=== PATIENT | female | born 1975 | race Caucasian/White ===

== ENCOUNTER 2017-09-13 11:16 | Day surgery (SDC) | payer BC ==
--- NOTE | 2017-09-13 05:23 | History and Physical Report ---
DATE: 09/12/2017. CHIEF COMPLAINT AND HISTORY OF CHIEF COMPLAINT: This patient presents with a history of an intractable lumbar radiculopathy. Due to the failure of all therapy, she presents today for an implanted spinal catheter infusion trial with hydromorphone to determine if the implantation of a permanent system can be of any value in pain control. PAST MEDICAL HISTORY: Asthmatic bronchitis, sleep apnea. PAST SURGICAL HISTORY: Abdominal surgery, gallbladder surgery. MEDICATIONS ON ADMISSION: To be provided. ALLERGIES: Penicillin, morphine, Bactrim, Latex. SOCIAL HISTORY: Smoking, social alcohol, caffeine. FAMILY HISTORY: Hypertension, cancer, asthma. REVIEW OF SYSTEMS: The patient seems appropriate and in no acute distress. The remainder of the systems review shows chronic head and neck pain, headaches , sleep disturbance, peripheral edema, irritable bowel syndrome, degenerative arthritis, Crohn's disease. PHYSICAL EXAMINATION: General: Height and weight are unavailable. Vital Signs: Unavailable. HEENT: Within normal limits. Lungs: Clear. Heart: Regular rate and rhythm. Abdomen: Nontender. Musculoskeletal: Examination of the musculoskeletal system shows diffuse tenderness throughout the lumbar spine. Range of motion produces pain moving into both legs. Sensory field evaluation shows a generalized sensory reduction across both front and back surfaces of both legs. Her motor functionality appears to be intact, although she indicates an assistive device is used because of weakness in her legs. Ambulation: Assistive device utilized. Neurologic: Cranial nerves are intact. IMPRESSION: LUMBAR RADICULOPATHY, ICD-10 CODE M54.16 AND M54.17. PLAN: The patient is here for an implanted spinal catheter infusion trial with hydromorphone to determine if the implantation of a permanent system can be of any value in pain control. The implanted catheter technique will be utilized to help minimize the number of needle penetrations into the spinal space required to get to the permanent system. The implanted catheter will also stabilize the catheter and reduce the incidence of spinal headaches. With this in combination with an epidural blood patch, ideally we will keep the incidence at a low percent. The implanted catheter trial with hydromorphone will run 14 days. During this period of time, three increases will be scheduled if necessary. At the end of the two-week period of time, we will implant the pump or remove the implanted catheter. The potential risks, side effects, and complications have been carefully reviewed and discussed including spinal cord injury, nerve root injury, spinal headache, and failure of therapy. She was fully informed about the risks, side effects, and complications. She was given a booklet with CD Rom from the hand filer balance wheel, [employer], which addresses the same. She was put in contact with a sales representative gas service who will also discuss the issues and the potential complications. She understands and has consented. An overnight stay will be evaluated. JOB NUMBER: [id number] cc: Quentin Singleton
[~2017-09-13 11:16] MED LIST: ACETAMINOPHEN 1,000 MG/100 ML BTL IV ONE; CLINDAMYCIN 600MG/50ML PREMIX 600 MG/50 ML BAG IVPB ONE; FAMOTIDINE 20MG TABLET PO ONE; HYDROMORPHONE PF 2MG/ML AMP 0.008 MG in 0.9 % SODIUM CHLORIDE 10ML VIA 0.996 ML IV ONE; HYDROMORPHONE PF 2MG/ML AMP 4 MG in 0.9 % SODIUM CHLORIDE 500ML 498 ML IV ONE; MECLIZINE 25 MG TABLET PO ONE; METOCLOPRAMIDE 10 MG TABLET PO ONE
[2017-09-13] MEDS ORDERED: LIDOCAINE 1% W/EPI 1:200,000 MPF 30ML SQ ONE (11:17)
[2017-09-13] MEDS ORDERED: MIDAZOLAM HCL 2MG/2ML VIAL IV ONE (11:17)
[2017-09-13] MEDS ORDERED: LIDOCAINE 2% MDV (20MG/ML) 20ML VIAL IV ONE (11:17)
[2017-09-13] MEDS ORDERED: FENTANYL PF 100MCG/2ML VIAL IV ONE (11:17)
[2017-09-13] MEDS ORDERED: HYDROMORPHONE HCL 2 MG/ML VIAL IV ONE (11:17)
[2017-09-13] MEDS ORDERED: *PACU ONLY* KETAMINE HCL 10 MG/ML (20ML) VIAL IV ONE (11:17)
[2017-09-13] MEDS ORDERED: BUPIVACAINE 0.5% W/EPI MPF 30 ML VIAL IVP ONE (11:17)
[2017-09-13] MEDS ORDERED: PROPOFOL 10 MG/ML VIAL IV ONE (11:17)
[2017-09-13] MEDS ORDERED: SENNOSIDES/DOCUSATE SODIUM UD CAPSULE PO PRN ×2 (14:06)
[2017-09-13] MEDS ORDERED: HYDROMORPHONE HCL 2 MG/ML VIAL IM PRN ×2 (14:06)
[2017-09-13] MEDS ORDERED: OXYCODONE/APAP 10MG-325MG TABLET PO PRN (14:06)
[2017-09-13] MEDS ORDERED: METOCLOPRAMIDE HCL 10 MG/2 ML VIAL IVP PRN (14:06)
[2017-09-13] MEDS ORDERED: AL HYDROX/MAG HYDROX 30ML UD PO PRN (14:06)
[2017-09-13] MEDS ORDERED: RINGERS SOLUTION,LACTATED 1,000 ML IV SCH (14:06)
[2017-09-13] MEDS ORDERED: DIPHENHYDRAMINE HCL 25 MG CAPSULE PO PRN ×2 (14:06)
[2017-09-13] MEDS ORDERED: DIPHENHYDRAMINE HCL IV 50 MG/ML VIAL IVP PRN (14:06)
[2017-09-13] MEDS ORDERED: NALOXONE 0.4 MG/1 ML VIAL IVP PRN (14:06)
[2017-09-13] MEDS ORDERED: TEMAZEPAM 15 MG CAPSULE PO PRN ×2 (14:06)
[2017-09-13] MEDS ORDERED: ACETAMINOPHEN 325 MG TAB PO PRN ×2 (14:06)
[2017-09-13] MEDS ORDERED: METOCLOPRAMIDE 10 MG TABLET PO PRN (14:06)
[2017-09-13] MEDS ORDERED: HYDROCODONE/APAP 7.5/325MG TABLET PO PRN ×2 (14:06)
[2017-09-13] MEDS: OXYCODONE/APAP 10MG-325MG TABLET PO PRN (14:58)
[2017-09-13] MEDS: DIPHENHYDRAMINE HCL IV 50 MG/ML VIAL IVP PRN (19:43)
[2017-09-13] MEDS: CLINDAMYCIN 600MG/50ML PREMIX 600 MG/50 ML BAG IVPB SCH (19:44)
--- NOTE | 2017-09-13 20:38 | Operative Note - [place] ---
DATE OF SURGERY: 09/13/17 PREOPERATIVE DIAGNOSIS: INTRACTABLE LUMBAR RADICULOPATHY, ICD-10 CODE = M54.16 AND M54.17. SURGERY: 1. FLUOROSCOPIC-GUIDED ACCESS SPINAL SPACE AT L3-4. PLACEMENT OF THIN-WALLED SPINAL CATHETER T12. 2. DIAGNOSTIC MYELOGRAPHY WITH RADIOLOGIC SUPERVISION AND INTERPRETATION. 3. SPINAL OPIOID BOLUS HYDROMORPHONE 0.002 MG SPINAL SPACE. 4. INCISION, SUBCUTANEOUS DISSECTION, AND ANCHORING OF SPINAL CATHETER TO DEEP SUPRASPINOUS FASCIA WITH AN ANCHORING DEVICE AND NONABSORBABLE SUTURE. 5. INCISION, SUBCUTANEOUS DISSECTION, AND FORMATION OF SMALL SUBCUTANEOUS POUCH AT LEFT FLANK, ULTIMATELY A SITE FOR PUMP. 6. TUNNELING MIDLINE SPINAL CATHETER INTO FLANK POUCH, INTERFACE SPINAL CATHETER WITH SECOND CATHETER COMPONENT BY WAY OF CONNECTOR TUNNELING SECONDARY CATHETER COMPONENT 6 CM SUPERIOR TO POUCH EXITING THE SKIN. 7. INTERFACE EXTERNAL CATHETER TO EXTERNAL PUMP SET TO DELIVER HYDROMORPHONE AT 0.08 MG PER DAY. 8. CLOSURE OF MIDLINE INCISION WITH VICRYL FOR FASCIAL AND RUNNING SUBCUTICULAR VICRYL FOR SKIN, DERMABOND CLOSURE, CLOSURE OF LEFT FLANK POUCH WITH RUNNING NYLON, DRESSINGS PLACED. 9. EPIDURAL BLOOD PATCH AT L4-5, 20 ML AUTOLOGOUS BLOOD DRAWN, STERILE TECHNIQUE, LEFT ANTECUBITAL. SURGEON: LISA CRUZ D.O. ANESTHESIA: LOCAL SEDATION. ANESTHESIA PROVIDER: JOSE MIGUEL VELOZ CRNA INDICATIONS: This patient presents with a history of an intractable lumbar radiculopathy. Due to the failure of all therapy, she is here for a spinal opioid infusion trial with an implanted catheter to determine if an implanted device would be of any value in pain control. SURGERY: Intravenous line, vital sign monitoring, IV sedation, prepped and draped in sterile technique, under imaging, patient positioned prone. The spinal interspace at L3-4 was marked, skin infiltrated. A #20 gauge spinal needle paramedian approach beveled with the long axis inserted into the spinal space. This was accomplished using AP and lateral imaging, advancing the needle slowly on lateral imaging. With CSF flow, a thin-walled spinal catheter was advanced, positioned at T12. There were no fasciculations. No indication of nerve root irritation. With the catheter at T12, diagnostic myelography was performed. The resulting flow characteristics were smooth and linear in the space. There were appropriate flow characteristics identified identified in the spinal space. A thin-walled spinal catheter was positioned at T12 at the midline. The needles were removed. An incision was made above and below the needle site and subcutaneous dissection was conducted to the supraspinous fascia. The catheter was then anchored to the supraspinous fascia with nonabsorbable suture and anchoring device. CSF was still noted coming through the catheter. The catheter was clamped to stop CSF leak. A bolus of Hydromorphone of 0.002 mg was given through the catheter into the spinal space at T12. At the left flank, which was the site ultimately picked by the patient for the pump if successful with the trial, skin infiltrated, incision made, and subcutaneous dissection was conducted to form a small pouch of suitable depth. A tunneling tool was used to carry the spinal catheter from midline into the flank pouch and then the spinal catheter was interfaced and resected with a second catheter component by way of a connector. This second catheter component was tunneled superior above this exiting the skin. The external catheter was interfaced with an external pump, which was set to deliver Hydromorphone at 0.08 mg a day. The midline incision was closed with Vicryl for fascia and a running subcuticular Vicryl for skin. The left flank pouch was closed with a running nylon. At L4-5, which was one level over the dural puncture, skin infiltrated, an #17 gauge, six-inch epidural needle with [id number] under imaging placed into the epidural space. No CSF noted. Simultaneously, 20 mL of autologous blood drawn sterile technique from the left antecubital. This blood, maintaining sterility, was placed onto the field. An epidural blood patch was then performed with this blood at this level. Needle removed. Dressings were placed securing the catheter and all connections under sterile dressing. With the pump set to run and all the dressings placed, she was transported to the Recovery Room stable showing no side-effects from the procedure or the sedation. She had full functionality of all extremities. There was no unusual pain and no side-effects. She will be kept flat for four hours and slowly elevated for one, but will be kept overnight for observation. IN THE MORNING DISCHARGE INSTRUCTIONS : 1. The sites to remain clean and dry. No showering or bathing in any way that would disrupt dressings. 2. Standard medications resumed limiting oral analgesics if tolerated. 3. Spinal opioid side-effects of respiratory depression, nausea, vomiting, constipation, urinary retention, lightheadedness or rash have all been discussed and reviewed. She will be contacted by the office in two days to set up an appointment to come in in three days for her first increase. Any side- effects should be reported to the office. If unsuccessful, she should go to the local Emergency Room and have the office contacted. All other instructions provided. Numbers to contact if problems given. She will be evaluated. cc: Dr. Pineda Lopez JOB NUMBER: [id number] MTDD
[2017-09-13] MEDS ORDERED: TOPIRAMATE 25MG TABLET PO SCH (22:00)
[2017-09-13] MEDS ORDERED: DOXEPIN HCL 25 MG CAPSULE PO SCH (22:00)
[2017-09-14] MEDS: CLINDAMYCIN 600MG/50ML PREMIX 600 MG/50 ML BAG IVPB SCH ×2 (03:04→12:11)
[2017-09-14] MEDS: DIPHENHYDRAMINE HCL IV 50 MG/ML VIAL IVP PRN (03:10)
[2017-09-14] MEDS: OXYCODONE/APAP 10MG-325MG TABLET PO PRN (06:16)
--- NOTE | 2017-09-14 22:20 | RADIOLOGY REPORT ---
EXAM: SPINE, 1 VIEW HISTORY: POST PAIN CATHETER IMPLANT. TECHNIQUE: Single AP view of the spine obtained from approximately the T3 level down to the L3 level. COMPARISON: Thoracic spine series 03/18/16. FINDINGS: The previously seen segmented metallic wires overlying the spine are no longer evident. There is a tiny metallic dot-like density overlying the right side of the T12 vertebra, which may be the superior extent of a catheter. There is questionably a second catheter extending much further superiorly into the thoracic level with no associated tiny dot seen. This could also just be an artifact along the left side of the spine and correlation with the procedure itself is suggested. There is a mild mid thoracic curve to the left partially seen, also present previously. Linear metallic density overlying the left mid abdomen approximately 1.9 cm in length may be associated with the catheter and clinical correlation is suggested. IMPRESSION: 1. TINY METALLIC DOT-LIKE DENSITY OVERLYING THE T12 VERTEBRA MAY BE THE SUPERIOR EXTENT OF A SPINAL CATHETER AND CORRELATION WITH THE PROCEDURE IS SUGGESTED. 2. THERE IS ALSO A FAINT VERTICAL CATHETER-LIKE DENSITY EXTENDING MUCH FURTHER SUPERIORLY IN THE THORACIC REGION, WHICH MAY JUST BE AN OVERLYING ARTIFACT. 3. A 1.9 CM IN LENGTH LINEAR METALLIC DENSITY LEFT SIDE OF THE ABDOMEN, DESCRIBED ABOVE. JOB NUMBER: [id number] MTDD
== END 2017-09-14 12:32 | disposition home or self-care (01) ==
LOC: SUR 11:16 → MEDSURG 13:54 → SUR 09-14 12:32
PROVIDERS: ATTEND Pain Medicine Interventional Pain Medicine
DX: M54.16 Radiculopathy, lumbar region (principal); M54.17 Radiculopathy, lumbosacral region; K50.90 Crohn's disease, unspecified, without complications
CPT/HCPCS: 72020; 84703; J1170; J1200; J7040; J7120

== ENCOUNTER 2017-09-27 12:49 | Day surgery (SDC) | payer BC ==
--- NOTE | 2017-09-27 07:17 | History and Physical Report ---
DATE: 09/27/2017. CHIEF COMPLAINT AND HISTORY OF CHIEF COMPLAINT: This patient presents with a history of intractable lumbar radiculopathy. She has an implanted spinal catheter infusion trial with hydromorphone ongoing. She has achieved 75 to 85 percent pain control. Due to the failure of other therapies and the success of the trial, she is here for full implantation. PAST MEDICAL HISTORY: Asthmatic bronchitis, sleep apnea. PAST SURGICAL HISTORY: Abdominal surgery, gallbladder surgery. MEDICATIONS ON ADMISSION: To be provided. ALLERGIES: Penicillin, morphine, Bactrim, Latex. SOCIAL HISTORY: Smoking, social alcohol, caffeine. FAMILY HISTORY: Hypertension, cancer, asthma. REVIEW OF SYSTEMS: The patient seems appropriate and in no acute distress. The remainder of the systems review shows head and neck pain, headaches, sleep disturbance, peripheral edema, irritable bowel syndrome, degenerative arthritis , Crohn's disease. PHYSICAL EXAMINATION: General: Height and weight are unknown. Weight: Unknown. Vital Signs: Not available. HEENT: Within normal limits. Lungs: Clear. Heart: Regular rate and rhythm. Abdomen: Nontender. Musculoskeletal: Examination of the musculoskeletal system shows diffuse tenderness throughout the lumbar spine. Range of motion does produce pain throughout the low back and hip area. Lower extremity functionality shows pain across both legs. There are no motor or sensory field abnormalities. The dressings for the internal spinal catheter infusion trial are in place. The external pump is identified and is intact. Neurologic: Cranial nerves are intact. IMPRESSION: 1. LUMBAR RADICULOPATHY, ICD-10 CODE M54.16 AND M54.17. 2. IMPLANTED SPINAL CATHETER INFUSION TRIAL WITH HYDROMORPHONE. PLAN: With the success of the trial, the patient is here for implantation of a permanent system. We will consider the procedure outpatient, although an overnight stay will be evaluated. JOB NUMBER: [id number] cc: Quentin Singleton
[~2017-09-27 12:49] MED LIST changes: +HYDROMORPHONE HCL 0.04 GM in 0.9 % SODIUM CHLORIDE 10ML VIA 40 ML IV ONE; +HYDROMORPHONE PF 2MG/ML AMP 0.004 MG in 0.9 % SODIUM CHLORIDE 10ML VIA 0.998 ML IV ONE; -HYDROMORPHONE PF 2MG/ML AMP 0.008 MG in 0.9 % SODIUM CHLORIDE 10ML VIA 0.996 ML IV ONE; -HYDROMORPHONE PF 2MG/ML AMP 4 MG in 0.9 % SODIUM CHLORIDE 500ML 498 ML IV ONE
[2017-09-27] MEDS ORDERED: PROPOFOL 10 MG/ML VIAL IV ONE (12:50)
[2017-09-27] MEDS ORDERED: MIDAZOLAM HCL 2MG/2ML VIAL IV ONE (12:50)
[2017-09-27] MEDS ORDERED: BUPIVACAINE 0.5% W/EPI MPF 30 ML VIAL IVP ONE (12:50)
[2017-09-27] MEDS ORDERED: FENTANYL PF 100MCG/2ML VIAL IV ONE (12:50)
[2017-09-27] MEDS ORDERED: LIDOCAINE 1% W/EPI 1:200,000 MPF 30ML SQ ONE (12:50)
[2017-09-27] MEDS ORDERED: HYDROMORPHONE HCL 2 MG/ML VIAL IV ONE (12:50)
[2017-09-27] MEDS ORDERED: LIDOCAINE 2% MDV (20MG/ML) 20ML VIAL IV ONE (12:50)
[2017-09-27] MEDS ORDERED: CEFAZOLIN 1G VIAL IM ONE (12:50)
--- NOTE | 2017-09-28 07:35 | Operative Note ---
DATE OF SURGERY: 09/27/2017. PREOPERATIVE DIAGNOSIS: 1. INTRACTABLE LUMBAR RADICULOPATHY, ICD-10 CODE M54.16 AND M54.17. 2. IMPLANTED SPINAL CATHETER INFUSION TRIAL WITH HYDROMORPHONE. POSTOPERATIVE DIAGNOSIS: 1. INTRACTABLE LUMBAR RADICULOPATHY, ICD-10 CODE M54.16 AND M54.17. 2. IMPLANTED SPINAL CATHETER INFUSION TRIAL WITH HYDROMORPHONE. OPERATION: 1. FLUOROSCOPICALLY GUIDED INCISION, SUBCUTANEOUS DISSECTION, AND REMOVAL OF EXTERNAL CATHETER. 2. INCISION, SUBCUTANEOUS DISSECTION, AND CREATION OF SUBCUTANEOUS POUCH AT LEFT FLANK FOR PUMP IDENTIFIED MEDTRONIC 40 ML PROGRAMMABLE. 3. INCISION, RESECTION, AND REVISION OF INDWELLING SPINAL CATHETER INTERFACED WITH SECOND CATHETER COMPONENT BY WAY OF CONNECTOR. 4. INTERFACE REVISED CATHETER TO THE PUMP PLACED ONTO THE FIELD, 40 ML PROGRAMMABLE, FILLED WITH HYDROMORPHONE 1.0 MG PER ML. 5. PLACEMENT OF PUMP WITH INTERFACE TO CATHETER INTO POUCH, SECURING TO POSTERIOR FASCIA WITH NONABSORBABLE SUTURE USING PUMP EYELETS AT THREE POINTS. 6. PLACEMENT OF CURVED 24-GAUGE OSUNA NEEDLE TO ACCESS PORT FOR PROGRAMMABLE PUMP WITH ASPIRATION OF 1.0 ML OF CATHETER CONTENTS, CLEARING THE CATHETER OF OPIOID AND CEREBROSPINAL FLUID MIXTURE. 7. DIAGNOSTIC MYELOGRAPHY WITH RADIOLOGIC SUPERVISION AND INTERPRETATION THROUGH ACCESS PORT. 8. CLOSURE OF INCISION WITH VICRYL FOR THE FASCIA AND RUNNING SUBCUTICULAR VICRYL FOR THE SKIN. DERMABOND CLOSURE. 9. PROGRAMMING OF PUMP TO DELIVER BY CONTINUOUS INFUSION HYDROMORPHONE AT 0.2 MG PER DAY. SURGEON: Marcial Rizo D.O. ANESTHESIA: Local sedation. ANESTHESIA PROVIDER: Ortega Hooper CRNA. INDICATION: This patient presents with a history of an intractable lumbar radiculopathy. Due to the failure of therapy an implanted spinal catheter infusion trial with hydromorphone has been ongoing with 75 to 85 percent pain control. Due to the failure of other therapies and the success of the implanted catheter trial, she is here for implantation of a permanent system. DESCRIPTION OF PROCEDURE: Intravenous line, vital sign monitoring, and intravenous sedation. Prepped and draped with sterile technique by Anesthesia. The patient was positioned prone. The external components were removed. At the left flank, a site previously indicated for the pump, a small subcutaneous pouch was formed. The skin was infiltrated and an incision was made. Subcutaneous dissection was conducted to the interface between the indwelling spinal catheter and the external catheter. The connection was clamped The externalized catheter was cut and then pulled away from the incisional site and was removed. The incision, subcutaneous dissection, and creation of a subcutaneous pouch at the left flank was then performed for the pump, a 40 mL programmable Medtronic filled with 1.0 mg per mL concentration of hydromorphone. The indwelling catheter was then resected and interfaced with a second catheter component by way of a connector. This revised catheter was then interfaced to the pump. Antibiotic irrigation and Bovie for hemostasis. The pump was placed into the pouch and secured to the posterior fascia with nonabsorbable suture with pump eyelets at three points. With the pump in the pouch, a 24-gauge Osuna needle was inserted into the access port, and 1.0 mL of catheter contents was aspirated, clearing the catheter of opioid and cerebrospinal fluid mixture. Diagnostic myelography was then performed The resulting flow characteristics showed contrast moving through the pump without any restrictions. The pump catheter connection was imaged. There was no contrast leak or obstruction. The tip of the catheter at T12-L1 was identified with appropriate flow characteristics noted confirming functionality of the catheter and pump. The incision was then closed with Vicryl for the fascia and running subcuticular Vicryl for the skin. Dermabond closure approximated the edge of the wound. The pump was then programmed to deliver by continuous infusion hydromorphone at 0.2 mg per day. She was transported to the recovery room stable, showing no side effects from the procedure or the sedation. When fully awake and alert, she was prepared for discharge. DISCHARGE INSTRUCTIONS: 1. The sites are to remain clean and dry, although the Dermabond will allow showering in 24 hours. She may shower but may not sit in water or tub. 2. Standard medications to be resumed. She will continue her Levaquin 500 mg once a day for another seven days. 3. Spinal opioid side effects including respiratory depression, nausea, vomiting, constipation, urinary retention, lightheadedness, and rash have all been discussed and reviewed. 4. The office is to contact the patient in 24 to 48 hours to set up the appointment in seven to ten days to check the sites. Until then her activities should stay low, limiting bend, lift, push, and pull. 5. All other instructions were provided and number to contact with problems were given. At that point she was prepared for discharge. JOB NUMBER: [id number] cc: Quentin Singleton
== END 2017-09-27 15:45 | disposition home or self-care (01) ==
LOC: SUR 12:49
PROVIDERS: ATTEND Pain Medicine Interventional Pain Medicine
DX: M54.16 Radiculopathy, lumbar region (principal); M54.17 Radiculopathy, lumbosacral region; K50.90 Crohn's disease, unspecified, without complications
CPT/HCPCS: 62362; 62367; 00300; 84703; Q9967; J3010; J1170 ×2; C1755; J0690

== ENCOUNTER 2018-04-19 16:16 | Emergency (ER) | payer BC ==
--- NOTE | 2018-04-19 16:34 | Emergency Department Record ---
History of Present Illness - General Chief Complaint: Fall Injury Stated Complaint: FALL/KNEE,ELBOW/SIDE Time Seen by Provider: 04/19/18 16:23 Source: Patient Mode of Arrival: Wheelchair Limitations: No limitations - History of Present Illness Initial Comments: 42 yo female presents to ED for evaluation following a fall injury in the garage. Patient reports that she fell forward injuring her left elbow, right flank, and left knee. Patient denies injury to the head or neck, denies focal weakness or numbness on examination. Patient does report previous surgery for pain pump insertion with Dr. Rizo, also reports nerve decompression surgery to the left elbow. MD Complaint: Fall Onset/Timin -: Minutes(s) Fall From: Standing When Fall Occurred: Just prior to arrival Fall Witnessed: Yes, by family Place Fall Occurred: Home Loss of Consciousness: None Prolonged Down Time?: No Symptoms Prior to Fall: None Location: Face, Back Location - Extremities: Left: Elbow Severity: Moderate Severity scale (1-10): 8 Quality: Aching Associated Symptoms: Denies - [place] Coma Scale Eye Response: (4) Open spontaneously Motor Response: (6) Obeys commands Verbal Response: (5) Oriented [place] Total: 15 - Related Data Home Medications Medication Instructions Recorded Confirmed Last Taken Budesonide [Budesonide EC] 3 mg PO QAM 04/19/18 04/19/18 Unknown Hydrocodone/Acetaminophen [[place] 1 each PO ASDIR 04/19/18 04/19/18 Unknown 10-325 Tablet] Allergies Allergy/AdvReac Type Severity Reaction Status Date / Time folic acid Allergy RASH Verified 04/19/18 16:28 Latex, Natural Rubber Allergy RASH Verified 04/19/18 16:28 Penicillins Allergy RASH Verified 04/19/18 16:28 morphine AdvReac BEHAVIORAL Verified 04/19/18 16:28 CHANGES sulfamethoxazole AdvReac ITCHING Verified 04/19/18 16:28 [From Bactrim] trimethoprim [From Bactrim] AdvReac ITCHING Verified 04/19/18 16:28 Travel Screening - Travel/Exposure Within Last 30 Days Have you traveled within the last 30 days?: No Review of Systems Constitutional: Denies: Chills, Fever, Malaise, Night sweats Eyes: Denies: Eye discharge, Eye pain ENT: Denies: Congestion, Ear pain, Epistaxis Respiratory: Denies: Cough, Dyspnea Cardiovascular: Denies: Chest pain, Dyspnea on exertion Endocrine: Denies: Fatigue, Heat or cold intolerance Gastrointestinal: Denies: Abdominal pain, Nausea, Vomiting Genitourinary: Denies: Incontinence, Retention Musculoskeletal: Reports: Arthralgia. Denies: Back pain, Gout Skin: Denies: Bruising, Change in color, Change in hair/nails, Rash Neurological: Denies: Abnormal gait, Confusion, Headache, Seizure Psychiatric: Denies: Anxiety Hematological/Lymphatic: Denies: Anemia, Blood Clots Past Medical History - SOCIAL HISTORY Smoking Status: Former smoker - RESPIRATORY Hx Respiratory Disorders: Yes Hx Asthma: Yes (as a child) Hx Sleep Apnea: Yes Hx of CPAP: No (doesnt use) - CARDIOVASCULAR Hx Cardio Disorders: No Comment:: contributes to back pain - NEURO Hx Neuro Disorders: Yes Hx Headaches: Yes (3x's a month) Hx of Migraines: Yes (controlled since February 2017) Hx Neuropathy: Yes (bilat feet) - GI Hx GI Disorders: Yes Hx Abdominal Pain: Yes (r/t crohns) Hx Crohn's Disease: Yes (under control currently) Hx Irritable Bowel: Yes Comment:: SX INTERVENTION R/T CROHN'S - Hx Genitourinary Disorders: No Hx UTI: Yes (05/14 had UTI for 4 mos. Had IV ATB infusion bid x wk) - ENDOCRINE Hx Endocrine Disorders: No - MUSCULOSKELETAL Hx Musculoskeletal Disorders: Yes Hx Arthritis: Yes (DDD lumbar and cervical) Hx Back Injury: No - PSYCH Hx Psych Problems: No - HEMATOLOGY/ONCOLOGY Hx Hematology/Oncology Disorders: No Family Medical History Hx Cancer: Grandparents Hx Diabetes: Grandparents Physical Exam - General General Appearance: Alert, Oriented x3, Cooperative, Mild distress Limitations: No limitations - Head Head exam: Atraumatic, Normocephalic, Normal inspection Head exam detail: negative: Abrasion, Contusion, Williamson's sign, General tenderness, Hematoma, Laceration - Eye Eye exam: Normal appearance. negative: Conjunctival injection, Periorbital swelling, Periorbital tenderness, Scleral icterus - ENT Ear exam: negative: Auricular hematoma, Auricular trauma Nasal Exam: negative: Active bleeding, Discharge, Dried blood, Foreign body Mouth exam: negative: Drooling, Laceration, Muffled voice, Tongue elevation - Neck Neck exam: Normal inspection. negative: Meningismus, Tenderness - Respiratory Respiratory exam: Normal lung sounds bilaterally. negative: Rales, Respiratory distress, Rhonchi, Stridor - Cardiovascular Cardiovascular Exam: Regular rate, Normal rhythm, Normal heart sounds - GI/Abdominal GI/Abdominal exam: Soft. negative: Rebound, Rigid, Tenderness - Rectal Rectal exam: Deferred - exam: Deferred - Extremities Extremities exam: Tenderness, Other (Mild TTP over the left elbow without effussion or dislocation, ROM limited by pain. Compartments of the forearm and upper arm are soft on examination. Pain to the left infrapatellar region on examination, no effusion or patellar dislocation present.). negative: Calf tenderness, Pedal edema - Back Back exam: Reports: Other (Abrasion to the right flank). Denies: CVA tenderness (R), CVA tenderness (L) - Neurological Neurological exam: Alert, Normal gait, Oriented X3 - Psychiatric Psychiatric exam: Normal affect, Normal mood - Skin Skin exam: Abrasion, Normal color Type of lesion: abrasion Course Vital Signs 04/19/18 16:18 Temperature 98.2 F Pulse Rate 104 H Respiratory 20 Rate Blood Pressure 134/87 Pulse Ox 97 - Reevaluation(s) Reevaluation #1: 04/19/18 17:03 Left knee: No acute fracture Left elbow: No acute fracture CT Abdomen and Pelvis: No acute traumatic injury 2.6 cm adrenal adenoma 4.6 cm adexal cyst Spinal stimulator device Patient was updated on all results, examination and imaging appear c/w contusions. Patient's pain symptoms are well controlled, and the patient appears stable for discharge at this time. Disposition Disposition: Discharge Clinical Impression: Multiple contusions Disposition: Home, Self-Care Condition: (2) Stable Instructions: Contusion in Adults (ED) Additional Instructions: Return to ED if your symptoms worsen or if you have any concerns. Ibuprofen as directed. Follow-up with your family doctor in 3-5 days as directed. Forms: Patient Portal Access Time of Disposition: 17:06 Quality - Quality Measures Quality Measures: N/A - Blood Pressure Screening Does Patient Have Any of the Following: No Blood Pressure Classification: Pre-Hypertensive BP Reading Systolic Measurement: 134 Diastolic Measurement: 87 Screening for High Blood Pressure: < Pre-Hypertensive BP, F/U Documented > [ [id number]] Pre-Hypertensive Follow-up Interventions: Referral to alternative/primary care provider.
--- NOTE | 2018-04-20 09:37 | RADIOLOGY REPORT ---
EXAM: LEFT ELBOW HISTORY: PATIENT FELL AND INJURED LEFT ELBOW. TECHNIQUE: Four views of the left elbow were obtained. Comparison: None. Encounter: Initial. FINDINGS: The left elbow appears intact with no definite fracture or dislocation seen. No appreciable displacement of the fat pads about the distal humerus to suggest a joint effusion. IMPRESSION: NO DEFINITE FRACTURE OF THE LEFT ELBOW IDENTIFIED. JOB NUMBER: [id number] MTDD
--- NOTE | 2018-04-20 09:39 | RADIOLOGY REPORT ---
EXAM: LEFT KNEE HISTORY: PATIENT FELL WITH LEFT KNEE PAIN. TECHNIQUE: Four views of the left knee were obtained. Comparison: No prior left knee series. Encounter: Initial. FINDINGS: Mild degenerative arthritis is present in the left knee. No definite fracture, dislocation, or definite joint effusion seen. IMPRESSION: MILD DEGENERATIVE ARTHRITIS. NO FRACTURE OF THE LEFT KNEE IDENTIFIED. JOB NUMBER: [id number] MTDD
--- NOTE | 2018-04-20 10:08 | CT SCAN REPORT ---
EXAM: CT OF THE ABDOMEN AND PELVIS WITHOUT CONTRAST HISTORY: FELL WITH RIGHT FLANK INJURY. TECHNIQUE: Axial CT scan of the abdomen and pelvis was performed without oral or IV contrast. Comparison: CT urogram 04/18/17. FINDINGS: The gallbladder is not identified and presumably surgically absent. There has probably been a proximal colon resection as previously reported with an ileocolic anastomosis in the ascending colon and correlation with the prior surgical history is suggested as no such history is provided. Since the prior exam a battery pack has been placed in the subcutaneous tissues of the left back probably representing a spinal stimulator device with associated spinal stimulator wire extending up to the T12 level. There is a persistent relatively large low attenuation mass in the left side of the pelvis. This was previously measured at 4.6 cm in size and today appears essentially unchanged at about 4.7 cm. This again may just represent a relatively large left ovarian cyst, but recommend correlation with prior work- up. The previously described approximately 2.1 cm mass in the posterior aspect of the uterus thought to likely represent a leiomyoma on 04/18/17 is not as well seen today without IV contrast, but is probably present and essentially unchanged. The previously noted periumbilical anterior abdominal wall hernia again seen, again containing adipose tissue, but no bowel. There is probably a small right lower quadrant Spigelian hernia and also present previously as well, also containing adipose tissue, but no bowel. The previously seen approximately 2.6 cm right adrenal nodule is again seen today and again measures about 2.6 cm in size. This has a noncontrast CT density of 1 and is likely just an incidental stable lipid rich adrenal adenoma. The apparent small cyst in the lower pole of the right kidney seen previously is not well demonstrated today without IV contrast. No intrarenal calculi identified on either side. No hydronephrosis or hydroureter is seen with no definite ureteral calculus seen on either side. Evaluation of the bowel and viscera is considerably limited today without oral or IV contrast. Given this limitation, no definite hepatic, splenic, left adrenal, pancreatic, or renal mass identified. There are some mildly prominent mesenteric nodes, but these all appear essentially unchanged from before. Slightly prominent bilateral inguinal nodes also appear unchanged. No free intraperitoneal air or free intraperitoneal fluid evident. Degenerative change of the facets at the lower lumbar spine. IMPRESSION: 1. STABLE 2.6 CM RIGHT ADRENAL NODULE, LIKELY A LIPID RICH ADENOMA. 2. SMALL PERIUMBILICAL ANTERIOR ABDOMINAL WALL HERNIA AND PROBABLY A SMALL RIGHT LOWER QUADRANT SPIGELIAN HERNIA, BOTH OF WHICH CONTAIN ADIPOSE TISSUE, BUT NO BOWEL. 3. PROBABLE 2.1 CM LEIOMYOMA PREVIOUSLY SEEN ALONG THE POSTERIOR ASPECT OF THE UTERUS IS LIKELY STILL PRESENT AND UNCHANGED IN SIZE ALTHOUGH NOT WELL SEEN TODAY WITHOUT IV CONTRAST. 4. STABLE 4.6 CM LOW ATTENUATION MASS LEFT OVARY. RECOMMEND CORRELATION WITH PRIOR WORK-UP. 5. APPARENT POSTOP CHOLECYSTECTOMY AND PROBABLY ALSO PROXIMAL COLON RESECTION WITH ILEOCOLIC ANASTOMOSIS. CORRELATION WITH THE SURGICAL HISTORY IS SUGGESTED NO SUCH HISTORY IS PROVIDED. 6. NEW PAIN STIMULATOR DEVICE BATTERY PACK IN THE SUBCUTANEOUS TISSUES OF THE LEFT SIDE OF THE BACK WITH THE ASSOCIATED CATHETER EXTENDING UP TO THE T12 LEVEL. JOB NUMBER: [id number] MTDD
== END 2018-04-19 17:38 | disposition home or self-care (01) ==
LOC: ER 16:16
DX: S50.02XA Contusion of left elbow, initial encounter (principal); S80.01XA Contusion of right knee, initial encounter; R10.9 Unspecified abdominal pain; W01.198A Fall on same level from slipping, tripping and stumbling with subsequent striking against other object, initial encounter; Y92.008 Other place in unspecified non-institutional (private) residence as the place of occurrence of the external cause; Z87.891 Personal history of nicotine dependence
CPT/HCPCS: 74176; 99283; 99284

== ENCOUNTER 2018-07-20 06:23 | Day surgery (SDC) | payer BC ==
[2018-07-20] MEDS ORDERED: LIDOCAINE 2% MDV (20MG/ML) 20ML VIAL IV ONE (06:24)
[2018-07-20] MEDS ORDERED: PROPOFOL 10 MG/ML VIAL IV ONE (06:24)
--- NOTE | 2018-07-23 08:20 | Operative Note ---
DATE OF SURGERY: 07/20/2018 SURGEON: Maritza Jordan MD OPERATION: COLONOSCOPY. INDICATIONS: This is a 42-year-old female with history of Crohn disease who presented for surveillance colonoscopy. POSTOPERATIVE DIAGNOSES: 1. Ileocolonic anastomosis ulcer. 2. Otherwise normal colon. ANESTHESIA: Sedation is per Anesthesia. Pulse oximetry was monitored throughout the procedure to maintain O2 saturation of 90% or greater. Supplemental oxygen was administered via nasal cannula. Cardiac and vital signs were monitored throughout the duration of the procedure, and they were stable. The procedure of colonoscopy and risks and alternatives of the procedure, including the risk of bleeding and perforation, among others, were explained to the patient who voiced understanding and agreed to have the procedure done. Physical examination was performed, and the patient was found stable for sedation. PROCEDURE: The patient was placed in the left lateral position. Sedation was initiated. A digital rectal exam was performed and showed some mild external hemorrhoids with no palpable rectal masses. An Olympus PCF-180AL colonoscope was then inserted into the rectum under direct visualization. It was advanced to the distal terminal ileum without any difficulty. The colonic mucosa was carefully examined upon introduction of the colonoscope. There were ileocolonic anastomosis ulcers. There were no other lesions noted. The colonoscope was then withdrawn while carefully examining the colonic mucosal surfaces. No other lesions were noted. Multiple ileocolonic anastomosis biopsies were obtained, and random colon biopsies were also obtained. In the rectum, retroflexion was performed and grade 1 internal hemorrhoids were noted. The colonoscope was then withdrawn and the procedure was terminated. The patient tolerated the procedure well without any immediate complications. The patient remained with stable vital signs and was transferred to the recovery room. RECOMMENDATIONS: 1. The patient should continue on budesonide. 2. We will see the patient in the office. Thank you for allowing me to participate in the care of your patient. CC: Quentin RUBIN
== END 2018-07-20 08:39 | disposition home or self-care (01) ==
LOC: HOP 06:23
PROVIDERS: ATTEND Internal Medicine Gastroenterology
DX: Z12.11 Encounter for screening for malignant neoplasm of colon (principal); Z87.19 Personal history of other diseases of the digestive system; K63.3 Ulcer of intestine
CPT/HCPCS: 81025